=== PATIENT | female | born 1975 | race Caucasian/White ===

== ENCOUNTER 2016-11-17 20:35 | Observation (INO) ==
[2016-11-17] MEDS ORDERED: SODIUM CHLORIDE 0.9% 500 ML IV STA (21:33)
[2016-11-17] MEDS ORDERED: NITROGLYCERIN 2% OINT 1 INCH/GM PACK TOP STA (21:33)
[2016-11-17] MEDS ORDERED: ASPIRIN 325 MG TABLET PO STA (21:33)
[2016-11-17] MEDS ORDERED: METOPROLOL TARTRATE 25 MG TABLET PO STA (21:33)
[2016-11-17] MEDS ORDERED: MORPHINE 2 MG/1 ML SYRINGE IV STA (21:33)
[2016-11-17] MEDS ORDERED: ONDANSETRON 4 MG/2 ML VIAL IV STA (21:33)
[2016-11-17] MEDS ORDERED: ALUM/MAG/SIMETH/LIDO VISC 1:1 30 ML BOTTLE PO STA (21:33)
[2016-11-17] MEDS ORDERED: METOPROLOL TARTRATE 25 MG TABLET ONE (21:42)
[2016-11-17] MEDS ORDERED: NITROGLYCERIN 2% OINT 1 INCH/GM PACK TOP ONE (21:42)
[2016-11-17] MEDS ORDERED: ONDANSETRON 4 MG/2 ML VIAL ONE (21:42)
[2016-11-17] MEDS ORDERED: ALUM/MAG/SIMETH/LIDO VISC 1:1 30 ML BOTTLE PO ONE (21:43)
[2016-11-17] MEDS ORDERED: ASPIRIN 325 MG TABLET ONE (21:43)
[2016-11-17] MEDS ORDERED: MORPHINE 2 MG/1 ML SYRINGE ONE (21:43)
[2016-11-17 22:18] LABS: Apearance,Urine CLEAR (Clear); Bilirubin,Urine Negative (Negative); Blood, Urine Negative (Negative); Glucose,Urine (UA) Negative (Negative); Ketones,Urine Negative (Negative); Nitrite,Urine Negative (Negative); Protein,Urine Negative; RBC,Urine <1 /HPF (0-4); Squamous Epithelial Cell,Urine Occasional /HPF (0-10); Urine Color Yellow (Yellow); Urine Specific Gravity 1.009 (1.001-1.035); Urine Urobilinogen < 2.0 EU/DL (0.2-1.0); WBC,Urine 1 /HPF (0-6)
--- NOTE | 2016-11-17 22:18 | Emergency Department Note ---
Theron May Emily, am scribing for, and in the presence of, Kenrick Figueroa MD 21: 52. Carolina May Charles R, MD, personally performed the services described in this documentation, ascribed by Ingris Crump in my presence, and it is both accurate and complete . Arrival - Arrival Chief Complaint: Chest Pain Stated Complaint: chest pains ED Nursing Triage Note: pt presented to triage via w/c with c/o CP that radiates down L arm. Describes pain as sharp and stabbing. Rates 02/08 Mode of Arrival: Ambulatory Limitations: No Limitations Source: Patient, Significant other () Time Seen by Provider: 11/17/16 21:16 - History of Present Illness HPI Narrative: Pt is a 40 y/o female who came to ED with c/o intermittent chest pain that radiating into jawline and left arm with SOB that onset 2 months ago and tonight has worsened. Pt notes ignoring the pain, until it became stabbing tonight and has eased up some in ED. Pt has associated sxs dizziness, weakness , nausea, increased frequency, rapid heart rate, swelling in all extremities, and calf tenderness. Pt denies smoking tobacco. FMHx of grandmother with massive [place]. PMHx of blockage in colon and hysterectomy in October 2015. Onset (ago): month(s) Consistency: intermittent Severity: mild, moderate Severity scale (1-10): 4 Quality: stabbing, aching Allergies/Adverse Reactions: Allergies Allergy/AdvReac Type Severity Reaction Status Date / Time nitrofurantoin Allergy Severe Vomiting Verified 10/03/15 12:00 [From Macrobid] promethazine [From Phenergan] AdvReac Verified 12/29/15 10:28 Home Medications: Home Medications Medication Instructions Recorded Confirmed Type Linaclotide [Linzess] 145 mcg PO DIRECTED 11/15/14 12/25/15 History Multivitamin [One Daily] 1 tablet PO DAILY 11/15/14 12/25/15 History Pantoprazole Tab [Protonix Tab] 40 mg PO DAILY 11/15/14 12/25/15 History Estradiol 0.1MG Patch (1X Wk) 1 patch TRANSDERM Q7DAY #4 patch NS 10/07/1512/28 Rx [Climara 0.1 mg/24 hr Patch] Review of System - Review of System 12 point system: reviewed and no additional remarkable complaints except as stated - Review of System Constitutional: Present: diaphoresis. Absent: fever Respiratory: Present: respiratory distress (sob) Cardiovascular: Present: chest pain (radiating into jaw and left arm), palpitations (rapid), edema (all extremities). Absent: syncope Gastrointestinal: Present: nausea, diarrhea. Absent: abdominal pain, vomiting Genitourinary female: Present: frequency. Absent: dysuria, hematuria Musculoskeletal: Present: arm pain, neck pain (jaw line). Absent: back pain, leg pain Skin: Absent: rash Neurological: Absent: headache Medical,Surgical,& Family Hx - Medical History Neurology: History of: Migraine No history of: Seizures HEENT: History of: Oral Cancer (TMJ) Genitourinary: History of: Kidney Stones Gastrointestinal: History of: Bowel Obstruction, GERD Musculoskeletal: History of: Herniated Disk, Musculoskeletal Problems Other: History of: MRSA (2015 after back surgery) - Surgical History Cardiac Surgeries: Patient Denies: Cardiac Catheterization HEENT Surgeries: Patient denies: Tonsilectomy & Adenoidectomy Abdominal Surgeries: Surgical HX of: Abdominal Surgery (colon surgery with dr odom), Colonoscopy, EGD Patient denies: Appendectomy, Cholecystectomy Reproductive Surgeries: Surgical HX of;: Breast Surgery (lumpectomy left breast) , Cystoscopy (with stent 2007. stent removed 2007), Hysterectomy Orthopedic Surgeries: Surgical HX of;: Spinal Surgery (l4 to s[address] luis fernando shabazz, [place] apr 2014) - Family History Family History: Reports;: Family Heart Disease (grandmother) - Social History Smoking Status: Never smoker Frequency of Alcohol Use: None Type of Drug Use: None Marital Status: Lives With:: Spouse Functional capacity: independent ambulation Exam Vital Signs: Vital Signs Temperature 96.2 F L 11/17/16 20:55 Pulse Rate 68 11/17/16 23:15 Respiratory Rate 20 11/17/16 23:15 Blood Pressure 112/72 11/17/16 23:15 O2 Sat by Pulse Oximetry 97 11/17/16 23:15 - General General appearance: alert, in no apparent distress - Head Head exam: Present: atraumatic, normocephalic - Eye Eye exam: Present: PERRL, EOMI - ENT ENT exam: Present: mucous membranes moist. Absent: mucous membranes dry - Neck Neck exam: Present: full ROM. Absent: tenderness - Chest Chest inspection: Present: symmetric chest wall rise. Absent: tenderness - Respiratory Respiratory exam: Present: normal lung sounds bilaterally. Absent: respiratory distress - Cardiovascular Cardiovascular exam: Present: regular rate, normal rhythm, normal heart sounds. Absent: tachycardia - Abdominal Exam Abdominal exam: Present: soft, normal bowel sounds. Absent: tenderness - Extremities Exam Extremities exam: Present: full ROM. Absent: tenderness, pedal edema - Back Exam Back exam: Present: full ROM. Absent: tenderness - Neurological Exam Neurological exam: Present: alert, oriented X3, CN II-XII intact. Absent: motor sensory deficit - Psychiatric Psychiatric exam: Present: normal affect, normal mood - Skin Skin exam: Present: warm, dry Course - Consultations Consultation #1: Hospitalist will admit patient Time: 00:00 Results - Labs CBC & BMP: 11/17/16 21:07 11/17/16 21:07 Lab Results: I have reviewed the patients labs Labs: Laboratory Tests 11/17/16 21:07 Urine Appearance Clear Urine pH 7.0 Ur Specific [place] 1.009 Urine Blood Negative Urine Nitrate Negative Urine Urobilinogen < 2.0 H Urine Leukocytes Negative Urine RBC <1 Urine WBC 1 Ur Squamous Epith Cells Occasional Laboratory Tests 11/17/16 21:07 Urine Opiates Screen Negative Ur Barbiturates Screen Negative Ur Phencyclidine Scrn Negative U Amphetamine/Methamph Negative U Benzodiazepines Scrn Positive H U Cocaine Metab Screen Negative U Cannabinoids Screen Negative Disposition Clinical Impression: Chest pain, Atypical chest pain, Near syncope Case discussed with: patient, patient's family Disposition: Still a Patient Condition: Stable Time of Disposition: 00:12
[2016-11-17 22:27] LABS: Barbiturates Screen,Urine Negative (Negative); Benzodiazepines Screen,Urine Positive (Negative); Cannabinoid Screen,Urine Negative (Negative); Opiate Screen,Urine Negative (Negative); Phencyclidine Screen,Urine Negative (Negative)
[2016-11-17 23:23] LABS: Basophils % 0.3 % (0.0-0.8); Eosinophils # 0.1 10*3/uL (0.0-0.87); Eosinophils % 1.9 % (0.00-10.9); Hematocrit 41.2 VOL% (35.7-47.0); Immature Granulocytes % 0.9 %; Immature Granulocytes Absolute 0.06 #; Lymphocytes # 2.2 10*3/uL (1.4-4.0); Lymphocytes % 34.3 % (21.3-54.2); Mean Corpuscular Hemoglobin 34 PG (27-34); Mean Corpuscular Volume 99.3 FL (87-102); Mean Platelet Volume 11.8 FL (9.6-12.0); Monocytes # 0.5 10*3/uL (0.11-0.8); Monocytes % 8.1 % (1.7-12.7); Neutrophils # 3.5 10*3/uL (1.4-7.4); Neutrophils % 54.5 % (38.7-73.9); Platelet Count 205 T/CUMM (130-400); Red Blood Count 4.15 MC/CUMM (3.8-5.5); Red Cell Distribution Width 12.2 % (9.3-17.3); White Blood Count 6.4 T/CUMM (4-12)
[2016-11-17 23:30] LABS: D-Dimer <= 0.5 MG/L FEU; INR 0.9; PT Patient Result 9.6 SECS
[2016-11-17 23:44] LABS: Alanine Aminotransferase 26 U/L (13-56); Albumin 3.9 G/DL (3.4-5.0); Alkaline Phosphatase 64 U/L (45-117); Aspartate Amino Transferase 24 U/L (0-37); Bilirubin,Total < 0.39 MG/DL (0.2-1.0); Blood Urea Nitrogen 15 MG/DL (7-18); Calcium 9.2 MG/DL (8.5-10.1); Glucose 102 MG/DL (74-106); Osmolality,Calculated 277.5 MOS/KG (273-304); Potassium 3.8 MMOL/L (3.5-5.1); Sodium 139 MMOL/L (136-145)
[2016-11-18] MEDS ORDERED: KETOROLAC 30 MG/1 ML VIAL ONE (01:08)
[2016-11-18] MEDS ORDERED: KETOROLAC 30 MG/1 ML VIAL IV STA (01:09)
[2016-11-18] MEDS ORDERED: MORPHINE 2 MG/1 ML SYRINGE IV PRN (02:11)
--- NOTE | 2016-11-18 02:19 | Hospitalist History & Physical ---
Assessment and Plan (1) History of esophageal reflux Status: Acute Current Visit: Yes (2) History of neuropathy Status: Acute Current Visit: Yes (3) Atypical chest pain Status: Acute Assessment and plan: Our plan for this patient will be admitting her to our service. Her symptoms sound very atypical for cardiac pain. Patient was very concerned about this being her heart. I do feel would be appropriate to get cardiology to evaluate her we will draw serial cardiac enzymes and check a fasting lipid profile. Reevaluate patient in the morning and adjust plans appropriate. Current Visit: Yes History of Present Illness Chief complaint: Chest pain History of present illness: Ms. Funes is a 40 year old female with past medical history significant for reflux, chronic constipation and pain syndrome was in her normal state of health to the past 2 months. She said the pain has been coming and going but the pain really increased tonight and radiated to her jaw and down her arm to her elbow. She describes a stabbing. It made her short of breath and nauseated. There are no exertional components. She sees Dr. Stewart and Dr. Stewart is trying to get her an appointment with Dr. Chappell with cardiology. She got concerned tonight that it might be her heart and came to our hospital for further evaluation. I was consulted to admit her. Home Medications Medication Instructions Recorded Confirmed Type Linaclotide [Linzess] 145 mcg PO DIRECTED 11/15/14 12/25/15 History Multivitamin [One Daily] 1 tablet PO DAILY 11/15/14 12/25/15 History Pantoprazole Tab [Protonix Tab] 40 mg PO DAILY 11/15/14 12/25/15 History Estradiol 0.1MG Patch (1X Wk) 1 patch TRANSDERM Q7DAY #4 patch NS 10/07/1512/28 Rx [Climara 0.1 mg/24 hr Patch] Allergies Allergy/AdvReac Type Severity Reaction Status Date / Time nitrofurantoin Allergy Severe Vomiting Verified 10/03/15 12:00 [From Macrobid] promethazine [From Phenergan] AdvReac Verified 12/29/15 10:28 Medical,Surgical,& Family Hx - Medical History Neurology: History of: Migraine No history of: Seizures HEENT: History of: Oral Cancer (TMJ) Genitourinary: History of: Kidney Stones Gastrointestinal: History of: Bowel Obstruction, GERD Musculoskeletal: History of: Herniated Disk, Musculoskeletal Problems Other: History of: MRSA (2015 after back surgery) - Surgical History Cardiac Surgeries: Patient Denies: Cardiac Catheterization HEENT Surgeries: Patient denies: Tonsilectomy & Adenoidectomy Abdominal Surgeries: Surgical HX of: Abdominal Surgery (colon surgery with dr odom), Colonoscopy, EGD Patient denies: Appendectomy, Cholecystectomy Reproductive Surgeries: Surgical HX of;: Breast Surgery (lumpectomy left breast) , Cystoscopy (with stent 2007. stent removed 2007), Hysterectomy Orthopedic Surgeries: Surgical HX of;: Spinal Surgery (l4 [address] luis fernando shabazz, [place] apr 2014) - Family History Family History: Reports;: Family Heart Disease (grandmother) - Social History Smoking Status: Never smoker Frequency of Alcohol Use: None Type of Drug Use: None 12 point system: reviewed and no additional remarkable complaints except as stated Exam - Constitutional Vitals: Period Temp Pulse Resp BP Sys/Reeves Pulse Ox Last 24 Hr 96.2 F-96.2 F 68-86 18-20 100-125/52-81 96-100 General appearance: normal weight - Head Head exam: Present: normal inspection - Eye Eye exam: Present: EOMI Pupils: Present: LETY - ENT ENT exam: Present: normal exam - Neck Neck exam: Present: normal inspection - Respiratory Respiratory exam: Present: clear to auscultation bilaterally - Cardiovascular Cardiovascular exam: Present: regular rate and rhythm - GI/Abdominal GI/Abdominal exam: Present: normal bowel sounds - Extremities Exam Extremities exam: Present: normal inspection - Back Exam Back exam: Present: normal inspection - Neurological Exam Neurological exam: Present: alert, oriented X3 - Psychiatric Psychiatric exam: Present: normal affect, normal mood - Skin Skin exam: Present: normal color Results - Labs CBC & BMP: 11/17/16 21:07 11/17/16 21:07
--- NOTE | 2016-11-18 02:43 | Hospitalist History & Physical ---
Assessment and Plan (1) History of esophageal reflux Status: Acute Current Visit: Yes (2) History of neuropathy Status: Acute Current Visit: Yes (3) Atypical chest pain Status: Acute Assessment and plan: Our plan for this patient will be admitting her to our service. Her symptoms sound very atypical for cardiac pain. Patient was very concerned about this being her heart. I do feel would be appropriate to get cardiology to evaluate her we will draw serial cardiac enzymes and check a fasting lipid profile. Reevaluate patient in the morning and adjust plans appropriate. Current Visit: Yes History of Present Illness Chief complaint: Chest pain History of present illness: Ms. Funes is a 40 year old female Home Medications Medication Instructions Recorded Confirmed Type Linaclotide [Linzess] 145 mcg PO DIRECTED 11/15/14 12/25/15 History Multivitamin [One Daily] 1 tablet PO DAILY 11/15/14 12/25/15 History Pantoprazole Tab [Protonix Tab] 40 mg PO DAILY 11/15/14 12/25/15 History Estradiol 0.1MG Patch (1X Wk) 1 patch TRANSDERM Q7DAY #4 patch NS 10/07/1512/28 Rx [Climara 0.1 mg/24 hr Patch] Allergies Allergy/AdvReac Type Severity Reaction Status Date / Time nitrofurantoin Allergy Severe Vomiting Verified 10/03/15 12:00 [From Macrobid] promethazine [From Phenergan] AdvReac Verified 12/29/15 10:28 Medical,Surgical,& Family Hx - Medical History Neurology: History of: Migraine No history of: Seizures HEENT: History of: Oral Cancer (TMJ) Genitourinary: History of: Kidney Stones Gastrointestinal: History of: Bowel Obstruction, GERD Musculoskeletal: History of: Herniated Disk, Musculoskeletal Problems Other: History of: MRSA (2015 after back surgery) - Surgical History Cardiac Surgeries: Patient Denies: Cardiac Catheterization HEENT Surgeries: Patient denies: Tonsilectomy & Adenoidectomy Abdominal Surgeries: Surgical HX of: Abdominal Surgery (colon surgery with dr odom), Colonoscopy, EGD Patient denies: Appendectomy, Cholecystectomy Reproductive Surgeries: Surgical HX of;: Breast Surgery (lumpectomy left breast) , Cystoscopy (with stent 2007. stent removed 2007), Hysterectomy Orthopedic Surgeries: Surgical HX of;: Spinal Surgery (l4 [address] luis fernando shabazz, [place] apr 2014) - Family History Family History: Reports;: Family Heart Disease (grandmother) - Social History Smoking Status: Never smoker Frequency of Alcohol Use: None Type of Drug Use: None Exam - Constitutional Vitals: Period Temp Pulse Resp BP Sys/Reeves Pulse Ox Last 24 Hr 96.2 F-96.2 F 68-86 18-20 96-125/52-81 96-100 Results - Labs CBC & BMP: 11/17/16 21:07 11/17/16 21:07
[2016-11-18 02:47] LABS: Risk Ratio 3.5; VLDL CHOLESTEROL 46.8 MG/DL
--- NOTE | 2016-11-18 03:16 | EKG Report ---
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
[2016-11-18] MEDS: ONDANSETRON 4 MG/2 ML VIAL IV PRN ×2 (04:11→12:13)
[2016-11-18] MEDS: NITROGLYCERIN 2% OINT 1 INCH/GM PACK TOP SCH ×2 (05:46→13:08)
--- NOTE | 2016-11-18 06:23 | EKG Report ---
Stationary ECG Study [facility] ER Test Date: 11/17/2016 8:41:40 PM Pat Name: MIGUEL BELTRAN Department: Room: 264 Gender: F It Lead: : 1975 Requested by: Kenrick Yu Order Number: [id number] Reading MD: NOREEN COBOS Intervals [place] Rate: 73 P: 78 IN: 168 QRS: 73 QRSD: 73 T: 73 QT: 391 QTc: 416 Interpretive Statements SINUS RHYTHM NONSPECIFIC T WAVE ABNORMALITY Electronically Signed On 11-19-16 15:54:29 CDT by NOREEN COBOS [email or web address]
--- NOTE | 2016-11-18 06:24 | EKG Report ---
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
--- NOTE | 2016-11-18 08:12 | XRay Report ---
Exam: XR chest 2V Indication: Midline chest pain Comparison study: None Findings: The heart, mediastinum, and bony structures are within normal limits. There is no focal consolidation, pneumothorax or pleural effusion identified. Impression: No acute cardiopulmonary process. PROCEDURE INTERPRETED AT [facility] DEPARTMENT OF RADIOLOGY Final Report Signed by: Israel Gonzalez
[2016-11-18] MEDS ORDERED: ENOXAPARIN 40 MG/0.4 ML SYRINGE SUBCUT SCH (09:00)
[2016-11-18] MEDS ORDERED: PANTOPRAZOLE 40 MG TABLET PO SCH (09:00)
[2016-11-18] MEDS ORDERED: ASPIRIN EC 325 MG TABLET PO SCH (09:00)
--- NOTE | 2016-11-18 10:26 | Cardiology Consult Note ---
I, Melisa Pearce RN, am scribing for, and in the presence of, Curly Giron MD 10:25. Assessment and Plan - Time spent with patient Time spent with patient: Greater than 30 minutes (Due to assessment, plan, documentation, medication review) (1) Chest pain Status: Acute Assessment and plan: Patient is having chest pain symptoms, and some of her symptoms are a bit concerning for angina. I am going to get a treadmill stress test to rule out high risk results. I am suspicious that her symptoms are noncardiac in nature. Current Visit: Yes (2) History of esophageal reflux Status: Acute Assessment and plan: It is possible that her symptoms are coming from reflux, or even from musculoskeletal symptoms. Current Visit: Yes (3) Musculoskeletal pain Status: Acute Assessment and plan: The patient has been having some problems with diffuse musculoskeletal pain. Workup is underway by Dr. Stewart. 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 Kaur Ms. Funes is a 40 year old female who has never been seen by quality control technician. She denies ever having had a heart catheterization or stress test. She has a history of migraines and GERD. She has been seeing Dr. Stewart for complaints of generalized pain. She says Dr. Stewart has been working her up for possibly MS or fibromyalgia. She was placed on Cymbalta and quit taking it because of the side effects. She was prescribed Lyrica, but states she never picked up the prescription because she was concerned about possible side effects. Surgical history includes colon surgery, hysterectomy, breast surgery, spinal surgery and jaw surgery for TMJ. Family history is positive for mother with TIA and father with diabetes. She reports she is a lifetime non-smoker. She reports she has been having chest pain, shortness of breath, lower extremity edema, and dizziness for the last several months. Yesterday the pain became more severe, rating it a 10 on a scale of 1-10. She describes this as a sharp pain on the left side of her chest that goes down her left arm and up into her left jaw. Yesterday this was associated with diaphoresis, nausea and vomiting. The pain comes and goes, she said the worst episode she had yesterday lasted for greater than 5 minutes. She notes no triggers stating sometimes it comes on at rest sometimes comes on with exertion, but states it is usually relieved with rest. The pain is reproducible to palpation. Because the pain was so much worse yesterday than it normally is, she presented to the emergency department for further evaluation. EKG on admission was stable without evidence of any acute event. Chest x-ray revealed no acute cardiopulmonary process. Troponin has been negative 5. Being currently is less than 2. D-dimer was negative. Her cholesterol numbers are elevated, all other labs are unremarkable. She says her pain improved after receiving GI cocktail, Nitro-Bid, Toradol, and morphine in the emergency department last night. She denies any chest pain or shortness of breath at this time. Current Medications Aspirin () 325 mg PO DAILY [facility] Last Admin: 11/18/16 08:46 Dose: 325 mg Enoxaparin Sodium (Lovenox) 40 mg SUBCUT Q24H [facility] Last Admin: 11/18/16 08:46 Dose: 40 mg Morphine Sulfate () 2 mg IV Q5M PRN PRN Reason: Chest Pain Nitroglycerin (Nitro Bid Oint) 0.5 inch TOP Q6HR [facility] Last Admin: 11/18/16 05:46 Dose: Not Given Ondansetron HCl (Zofran Inj) 4 mg IV Q4H PRN PRN Reason: Nausea/Vomiting Last Admin: 11/18/16 04:11 Dose: 4 mg Pantoprazole Sodium (Protonix Tab) 40 mg PO DAILY [facility] Last Admin: 11/18/16 08:46 Dose: 40 mg CC: Carly Figueroa MD - Home Medications and Allergies Home Medications: Home Medications Medication Instructions Recorded Confirmed Type Linaclotide [Linzess] 145 mcg PO DAILY 11/15/14 11/18/16 History Multivitamin [One Daily] 1 tablet PO DAILY 11/15/14 11/18/16 History Pantoprazole Tab [Protonix Tab] 40 mg PO DAILY 11/15/14 11/18/16 History Estradiol 0.1MG Patch (1X Wk) 1 patch TRANSDERM Q7DAY #4 patch NS 10/07/1511/18 Rx [Climara 0.1 mg/24 hr Patch] Aspirin [Ecotrin] 81 mg PO DAILY 11/18/16 11/18/16 History Carisoprodol [Carisoprodol] 350 mg PO DIRECTED 11/18/16 11/18/16 History Clorazepate Dipotassium 7.5 mg PO DIRECTED 11/18/16 11/18/16 History Eletriptan HBr [Relpax] 40 mg PO DIRECTED 11/18/16 11/18/16 History Allergies/Adverse Reactions: Allergies Allergy/AdvReac Type Severity Reaction Status Date / Time nitrofurantoin Allergy Severe Vomiting Verified 10/03/15 12:00 [From Macrobid] promethazine [From Phenergan] AdvReac Verified 12/29/15 10:28 - Constitutional Constitutional: Present: as per HPI - EENT Eyes: Absent: blurry vision, requires corrective lense Ears: Absent: decreased hearing, ear pain, tinnitus Nose, mouth and throat: Present: headache(s), neck pain, sore throat. Absent: epistaxis, hoarseness - Cardiovascular Cardiovascular: Present: chest pain at rest, chest pain with activity, diaphoresis, dyspnea, dyspnea on exertion, edema, radiating jaw, neck or arm pain, lightheadedness, palpitations. Absent: orthopnea - Respiratory Respiratory: Present: dyspnea, dyspnea on exertion. Absent: cough, hemoptysis, wheezing - Gastrointestinal Gastrointestinal: Present: constipation, diarrhea, nausea, vomiting. Absent: abdominal pain, hematemesis, hematochezia, melena - Genitourinary Genitourinary: Absent: dysuria, hematuria - Musculoskeletal Musculoskeletal: Present: back pain, muscle weakness - Neurological Neurological: Present: abnormal gait, dizziness, frequent falls, headache(s). Absent: abnormal speech, confusion, syncope - Psychiatric Psychiatric: Absent: confusion - Endocrine Endocrine: Present: fatigue - Hematologic/Lymphatic Hematologic/Lymphatic: Present: easy bruising. Absent: easy bleeding Medical,Surgical,& Family Hx - Medical History Neurology: History of: Migraine Genitourinary: History of: Kidney Stones Gastrointestinal: History of: Bowel Obstruction, GERD Musculoskeletal: History of: Herniated Disk, Musculoskeletal Problems Other: History of: MRSA (2015 after back surgery) - Surgical History Abdominal Surgeries: Surgical HX of: Abdominal Surgery (colon surgery with dr odom), Colonoscopy, EGD Reproductive Surgeries: Surgical HX of;: Breast Surgery (lumpectomy left breast , breast augmentation), Cystoscopy (with stent 2007. stent removed 2007), Hysterectomy Orthopedic Surgeries: Surgical HX of;: Spinal Surgery (l4 to s1 surgery dr luis fernando shabazz, [place] apr 2014) Additional Surgical History: Oral surgery for TMJ - Family History Family History: Reports;: Family Cancer (father-colon cancer), Family Diabetes ( father), Family Heart Disease (grandmother), Family Stroke (mother-TIA) - Social History Smoking Status: Never smoker Have you smoked in the last 12 months: No Frequency of Alcohol Use: None Type of Drug Use: None Marital Status: Lives With:: Spouse Functional capacity: independent ambulation Physical Examination Vital Signs Temp Pulse Resp BP Pulse Ox 96.2 F L 69 20 116/73 100 11/17/16 20:38 11/17/16 20:38 11/17/16 20:38 11/17/16 20:38 11/17/16 20:38 General: Present: Appears Well, No Apparent Distress HEENT: Present: PERRL, Mucus Membranes Moist Neck: Present: Supple Neck, Midline Trachea, No Bruit Cardiac: Present: Reg Rate and Rhythm, No Murmur Lungs: Present: Normal Breath Sounds, No Wheeze, Rales, Rhonchi Neuro: Absent: Resting Tremor, Essential Tremor Abdomen: Present: Soft, Active Bowel Sounds, Non-Tender. Absent: Distended Skin: Absent: Suspicious Lesions, Wound Musculoskeletal: Present: Decreased Range of Motion, Pain in Joint Extremities: Present: No Edema, Normal Upper Extr. Pulses, Normal Lower Extr. Pulses Result/EKG - Labs CBC & BMP: 11/17/16 21:07 11/17/16 21:07 Lab Results: I have reviewed the past 24 hour labs Labs: Laboratory Results - last 24 hr 11/17/16 11/17/16 11/17/16 21:07 21:07 21:07 WBC RBC Hgb Hct MCV MCH MCHC RDW Plt Count MPV Neut % (Auto) Lymph % (Auto) [place] % (Auto) Eos % (Auto) Baso % (Auto) Neut # (Auto) Lymph # (Auto) [place] # (Auto) Eos # (Auto) Baso # (Auto) Immature Gran % Nucleated RBC % Immature Gran # Nucleated RBCs # INR 0.9 PT Patient/Control Mix 9.6 D-Dimer, Quantitative <= 0.5 Sodium 139 Potassium 3.8 Chloride 104 Carbon Dioxide 26 Anion Gap 12.8 BUN 15 Creatinine 0.80 GFR Calculation 98 BUN/Creatinine Ratio 18.00 Glucose 102 Calculated Osmolality 277.5 Calcium 9.2 Magnesium 2.0 Total Bilirubin < 0.39 AST 24 ALT 26 Alkaline Phosphatase 64 Troponin I B-Natriuretic Peptide Total Protein 7.0 Albumin 3.9 Globulin 3.1 Albumin/Globulin Ratio 1.2 Triglycerides Cholesterol LDL Cholesterol VLDL Cholesterol HDL Cholesterol Heart Disease Risk Ratio Lipase 218.0 Urine Color Yellow Urine Appearance Clear Urine pH 7.0 Ur Specific [place] 1.009 Urine Protein Negative Urine Glucose (UA) Negative Urine Ketones Negative Urine Blood Negative Urine Nitrate Negative Urine Bilirubin Negative Urine Urobilinogen < 2.0 H Urine Leukocytes Negative Urine RBC <1 Urine WBC 1 Ur Squamous Epith Cells Occasional Ur Culture Indicated? Not indicated Urine Opiates Screen Ur Barbiturates Screen Ur Phencyclidine Scrn U Amphetamine/Methamph U Benzodiazepines Scrn U Cocaine Metab Screen U Cannabinoids Screen 11/17/16 11/17/16 11/17/16 21:07 21:07 21:07 WBC 6.4 RBC 4.15 Hgb 14.0 Hct 41.2 MCV 99.3 MCH 34 MCHC 34.0 RDW 12.2 Plt Count 205 MPV 11.8 Neut % (Auto) 54.5 Lymph % (Auto) 34.3 [place] % (Auto) 8.1 Eos % (Auto) 1.9 Baso % (Auto) 0.3 Neut # (Auto) 3.5 Lymph # (Auto) 2.2 [place] # (Auto) 0.5 Eos # (Auto) 0.1 Baso # (Auto) 0.0 Immature Gran % 0.9 Nucleated RBC % 0.0 Immature Gran # 0.06 Nucleated RBCs # 0.00 INR PT Patient/Control Mix D-Dimer, Quantitative Sodium Potassium Chloride Carbon Dioxide Anion Gap BUN Creatinine GFR Calculation BUN/Creatinine Ratio Glucose Calculated Osmolality Calcium Magnesium Total Bilirubin AST ALT Alkaline Phosphatase Troponin I B-Natriuretic Peptide < 2 L Total Protein Albumin Globulin Albumin/Globulin Ratio Triglycerides Cholesterol LDL Cholesterol VLDL Cholesterol HDL Cholesterol Heart Disease Risk Ratio Lipase Urine Color Urine Appearance Urine pH Ur Specific [place] Urine Protein Urine Glucose (UA) Urine Ketones Urine Blood Urine Nitrate Urine Bilirubin Urine Urobilinogen Urine Leukocytes Urine RBC Urine WBC Ur Squamous Epith Cells Ur Culture Indicated? Urine Opiates Screen Negative Ur Barbiturates Screen Negative Ur Phencyclidine Scrn Negative U Amphetamine/Methamph Negative U Benzodiazepines Scrn Positive H U Cocaine Metab Screen Negative U Cannabinoids Screen Negative 11/17/16 11/18/16 11/18/16 21:07 00:00 00:02 WBC RBC Hgb Hct MCV MCH MCHC RDW Plt Count MPV Neut % (Auto) Lymph % (Auto) [place] % (Auto) Eos % (Auto) Baso % (Auto) Neut # (Auto) Lymph # (Auto) [place] # (Auto) Eos # (Auto) Baso # (Auto) Immature Gran % Nucleated RBC % Immature Gran # Nucleated RBCs # INR PT Patient/Control Mix D-Dimer, Quantitative Sodium Potassium Chloride Carbon Dioxide Anion Gap BUN Creatinine GFR Calculation BUN/Creatinine Ratio Glucose Calculated Osmolality Calcium Magnesium Total Bilirubin AST ALT Alkaline Phosphatase Troponin I < 0.015 < 0.015 B-Natriuretic Peptide Total Protein Albumin Globulin Albumin/Globulin Ratio Triglycerides 234 H Cholesterol 245 H LDL Cholesterol 153.0 VLDL Cholesterol 46.8 HDL Cholesterol 70 H Heart Disease Risk Ratio 3.50 Lipase Urine Color Urine Appearance Urine pH Ur Specific [place] Urine Protein Urine Glucose (UA) Urine Ketones Urine Blood Urine Nitrate Urine Bilirubin Urine Urobilinogen Urine Leukocytes Urine RBC Urine WBC Ur Squamous Epith Cells Ur Culture Indicated? Urine Opiates Screen Ur Barbiturates Screen Ur Phencyclidine Scrn U Amphetamine/Methamph U Benzodiazepines Scrn U Cocaine Metab Screen U Cannabinoids Screen 11/18/16 11/18/16 03:22 06:00 WBC RBC Hgb Hct MCV MCH MCHC RDW Plt Count MPV Neut % (Auto) Lymph % (Auto) [place] % (Auto) Eos % (Auto) Baso % (Auto) Neut # (Auto) Lymph # (Auto) [place] # (Auto) Eos # (Auto) Baso # (Auto) Immature Gran % Nucleated RBC % Immature Gran # Nucleated RBCs # INR PT Patient/Control Mix D-Dimer, Quantitative Sodium Potassium Chloride Carbon Dioxide Anion Gap BUN Creatinine GFR Calculation BUN/Creatinine Ratio Glucose Calculated Osmolality Calcium Magnesium Total Bilirubin AST ALT Alkaline Phosphatase Troponin I < 0.015 < 0.015 B-Natriuretic Peptide Total Protein Albumin Globulin Albumin/Globulin Ratio Triglycerides Cholesterol LDL Cholesterol VLDL Cholesterol HDL Cholesterol Heart Disease Risk Ratio Lipase Urine Color Urine Appearance Urine pH Ur Specific [place] Urine Protein Urine Glucose (UA) Urine Ketones Urine Blood Urine Nitrate Urine Bilirubin Urine Urobilinogen Urine Leukocytes Urine RBC Urine WBC Ur Squamous Epith Cells Ur Culture Indicated? Urine Opiates Screen Ur Barbiturates Screen Ur Phencyclidine Scrn U Amphetamine/Methamph U Benzodiazepines Scrn U Cocaine Metab Screen U Cannabinoids Screen - Diagnostic Findings Procedure: Chest x-ray: report reviewed by me - EKG EKG results: interpreted by me EKG shows: sinus rhythm Specialty Discharge - Follow Up or Referrals IBree Michael, MD, personally performed the services described in this documentation, ascribed by Melisa Pearce RN in my presence, and it is both accurate and complete 025 .
[2016-11-18] MEDS ORDERED: REGADENOSON 0.4 MG/5 ML SYRINGE IV ONE (10:33)
--- NOTE | 2016-11-18 12:13 | Event Note ---
Patient attempted GXT but due to severe weakness, fatigue could not achieve predicted target heart rate. She did have around less than [address] depression inferiorly. Because she cannot attain target heart rate safely, treadmill portion was discontinued. Lexiscan protocol then ensued. She then underwent initial nuclear scan, returned to treadmill where she attempted GXT portion again. Again, fatigue and severe weakness noted at suboptimal heart rates. Desirae scan, Cardiolite injected. Patient did have less than [address] depression in inferior leads, T-wave mildly inverted. No complaints of chest pain. No arrhythmia noted. Blood pressure responded appropriately. Now, patient transitions to nuclear medicine for completion of final scan. Dr. Giron to read, interpreted and advise. Of note, patient reports most of her adult life, she has had syncopal episodes without warning. Usually occurring around twice a year. Many years ago, she sought medical advice at [facility] but got no definitive answers. No prior history of seizure activity. We discussed the possibility of Reveal device as a possibility in her future should no other etiology of syncope be discovered. Will further defer to Dr. Giron for additional workup is needed.
--- NOTE | 2016-11-18 13:25 | ECHO Report ---
Chapis Funes Exam Date: 11/18/2016 10:43 Referring Physician: Technologist: Josephine Roth RDCS Age: 40 Ht (in): 67 Wt (lb): 165 Gender: F Exam Location: [facility] Echo Indications: Chest pain, unspecified, Dizziness and giddiness, Dyspnea, unspecified, Edema, unspecified, GERD BP: 115 / 76 HR: 77 Rhythm: Sinus Technical Quality: IMPRESSIONS Normal chamber sizes Normal LV systolic function with ejection fraction estimated be 55% without segmental wall motion reality 1+ tricuspid regurgitation with RVSP 22 mmHg plus RAP MEASUREMENTS (Male / Female) Normal Values 2D ECHO LV Diastolic Diameter PLAX 4.1 cm 4.2 - 5.9 / 3.9 - 5.3 cm LV Systolic Diameter PLAX 2.5 cm LV Fractional Shortening PLAX 38.4 % IVS Diastolic Thickness 0.7 cm 0.6 - 1.0 / 0.6 - 0.9 cm LVPW Diastolic Thickness 0.7 cm 0.6 - 1.0 / 0.6 - 0.9 cm RV Internal Dim ED PLAX 2.8 cm Aortic Root Diameter 2.7 cm LA Systolic Diameter LX 3.3 cm 3.0 - 4.0 / 2.7 - 3.8 cm DOPPLER TR Peak Velocity 235.0 cm/s TR Peak Gradient 22.1 mmHg FINDINGS Left Ventricle Normal left ventricular cavity size. Normal left ventricular wall thickness. Left ventricular ejection fraction is estimated at 55 %. Right Ventricle The right ventricle is normal in size and function. Right Atrium The right atrium is normal in size. Left Atrium The left atrium is normal in size. Mitral Valve Morphologically normal mitral valve without significant stenosis or prolapse. There is no mitral regurgitation. Aortic Valve Morphologically normal aortic valve without significant sclerosis or stenosis. There is no aortic regurgitation. Tricuspid Valve Morphologically normal tricuspid valve. Trace tricuspid valve regurgitation. Tricuspid regurgitation velocities suggest a PAP of 32 mmHg. Pulmonic Valve Morphologically normal pulmonic valve. Trace pulmonary valve regurgitation. Pericardium Normal pericardium without effusion. Aorta Normal ascending aorta dimension. Damion Martinez (Electronically Signed) Final Date: 18 November 2016 13:24
[2016-11-18] MEDS ORDERED: SODIUM CHLORIDE 0.9% 1,000 ML IV ONE (13:53)
--- NOTE | 2016-11-18 13:53 | Hospitalist Progress Note ---
Assessment and Plan (1) Chest pain Status: Acute Assessment and plan: Awaiting results of stress test Current Visit: Yes (2) Near syncope Status: Acute Assessment and plan: Blood pressure is on the lower and we will give a liter of normal saline Current Visit: Yes (3) History of esophageal reflux Status: Acute Assessment and plan: Continue Protonix Current Visit: Yes Hospitalist: Subjective Interval history: I am concerned about the symptoms she describes with her chest pains especially the radiation to her neck and down her left arm. Dr. Giron is seen her and agrees that she needs a stress test. Exam - Constitutional Vitals: Period Temp Pulse Resp BP Sys/Reeves Pulse Ox Last 24 Hr 96.2 F-97.9 F 61-86 18-20 90-130/52-81 95-100 Exam: Heart Rate-[RRR] Lungs-[CTAB] GI-[+bs soft, NT] Ext-[no edema] Neuro [Motor 5/5], [alert and oriented times 3] psych [normal mood and affect] General [no acute distress] Results - Labs CBC & BMP: 11/17/16 21:07 11/17/16 21:07 Lab Results: I have reviewed the past 24 hour labs - EKG EKG shows: sinus rhythm (With first-degree block) - Diagnostic Findings Procedure: Ultrasound: report reviewed by me (Echocardiogram showed an EF of 55 % with PA P of 30 to) Specialty Discharge - Follow Up or Referrals
--- NOTE | 2016-11-18 15:19 | Discharge Summary ---
Hospital Course - Hospital Course Hospital Course: 40-year-old female presented to the emergency room with complaints of chest pain and near syncope. Her blood pressure is running a little bit low and I bolster a liter of normal saline. She does have a history of reflux and already takes Protonix. Serial troponins were negative. Cardiology was consulted and did a stress test which was read as negative. Her echocardiogram was completely normal except for some tricuspid regurg. Her total cholesterol was mildly elevated and we discussed walking 20 minutes a day. Follow-up with primary care doctor in 1-2 weeks. - Time spent with patient Time with patient DS: Less than 30 minutes (25 min) Diagnosis - Discharge Diagnosis (1) Chest pain Status: Acute (2) Near syncope Status: Acute (3) History of esophageal reflux Status: Acute Specialty Discharge - Follow Up or Referrals Discharge Plan - Discharge Data Disposition: Disch To Home/Self Care Condition at Discharge: Stable Discharge Diet: heart healthy, low salt diet Activity: resume usual activities as tolerated Hygiene: no restrictions Weight Bearing at Discharge: full weight bearing - Discharge Medications New Cyclobenzaprine [Flexeril] 5 mg PO TID PRN #30 tablet PRN Reason: Muscle Spasm Continue Linaclotide [Linzess] 145 mcg PO DAILY Pantoprazole Tab [Protonix Tab] 40 mg PO DAILY Multivitamin [One Daily] 1 tablet PO DAILY Estradiol 0.1MG Patch (1X Wk) [Climara 0.1 mg/24 hr Patch] 1 patch TRANSDERM Q7DAY #4 patch NS Eletriptan HBr [Relpax] 40 mg PO DIRECTED Clorazepate Dipotassium 7.5 mg PO DIRECTED Discontinued Carisoprodol [Carisoprodol] 350 mg PO DIRECTED Aspirin [Ecotrin] 81 mg PO DAILY - Follow Up or Referral Follow Up: pmd, [Other] - 2 Weeks - Forms/Instructions Forms: Work/School Release Exam - Constitutional Vitals: Period Temp Pulse Resp BP Sys/Reeves Pulse Ox Last 24 Hr 96.2 F-97.9 F 61-86 18-20 90-130/52-81 95-100 General appearance: normal weight, no acute distress - Cardiovascular Cardiovascular exam: Present: regular rate and rhythm. Absent: tachycardia - GI/Abdominal GI/Abdominal exam: Present: normal bowel sounds, soft. Absent: tenderness - Extremities Exam Extremities exam: Present: normal inspection, normal capillary refill Discharge Results Procedures and tests throughout hospitalization: Pending Orders 11/18/16 11:30 NM ama perf SPECT rest or str Routine Labs on day of discharge: Labs from last 24 hours 11/18/16 11/18/16 11/18/16 08:04 06:00 03:22 WBC RBC Hgb Hct MCV MCH MCHC RDW Plt Count MPV Neut % (Auto) Lymph % (Auto) [place] % (Auto) Eos % (Auto) Baso % (Auto) Neut # (Auto) Lymph # (Auto) [place] # (Auto) Eos # (Auto) Baso # (Auto) Immature Gran % Nucleated RBC % Immature Gran # Nucleated RBCs # INR PT Patient/Control Mix D-Dimer, Quantitative Sodium Potassium Chloride Carbon Dioxide Anion Gap BUN Creatinine GFR Calculation BUN/Creatinine Ratio Glucose Calculated Osmolality Calcium Magnesium Total Bilirubin AST ALT Alkaline Phosphatase Troponin I < 0.015 < 0.015 < 0.015 B-Natriuretic Peptide Total Protein Albumin Globulin Albumin/Globulin Ratio Triglycerides Cholesterol LDL Cholesterol VLDL Cholesterol HDL Cholesterol Heart Disease Risk Ratio Lipase Urine Color Urine Appearance Urine pH Ur Specific [place] Urine Protein Urine Glucose (UA) Urine Ketones Urine Blood Urine Nitrate Urine Bilirubin Urine Urobilinogen Urine Leukocytes Urine RBC Urine WBC Ur Squamous Epith Cells Ur Culture Indicated? Urine Opiates Screen Ur Barbiturates Screen Ur Phencyclidine Scrn U Amphetamine/Methamph U Benzodiazepines Scrn U Cocaine Metab Screen U Cannabinoids Screen 11/18/16 11/18/16 11/17/16 00:02 00:00 21:07 WBC RBC Hgb Hct MCV MCH MCHC RDW Plt Count MPV Neut % (Auto) Lymph % (Auto) [place] % (Auto) Eos % (Auto) Baso % (Auto) Neut # (Auto) Lymph # (Auto) [place] # (Auto) Eos # (Auto) Baso # (Auto) Immature Gran % Nucleated RBC % Immature Gran # Nucleated RBCs # INR PT Patient/Control Mix D-Dimer, Quantitative Sodium Potassium Chloride Carbon Dioxide Anion Gap BUN Creatinine GFR Calculation BUN/Creatinine Ratio Glucose Calculated Osmolality Calcium Magnesium Total Bilirubin AST ALT Alkaline Phosphatase Troponin I < 0.015 < 0.015 B-Natriuretic Peptide Total Protein Albumin Globulin Albumin/Globulin Ratio Triglycerides 234 H Cholesterol 245 H LDL Cholesterol 153.0 VLDL Cholesterol 46.8 HDL Cholesterol 70 H Heart Disease Risk Ratio 3.50 Lipase Urine Color Urine Appearance Urine pH Ur Specific [place] Urine Protein Urine Glucose (UA) Urine Ketones Urine Blood Urine Nitrate Urine Bilirubin Urine Urobilinogen Urine Leukocytes Urine RBC Urine WBC Ur Squamous Epith Cells Ur Culture Indicated? Urine Opiates Screen Ur Barbiturates Screen Ur Phencyclidine Scrn U Amphetamine/Methamph U Benzodiazepines Scrn U Cocaine Metab Screen U Cannabinoids Screen 11/17/16 11/17/16 11/17/16 21:07 21:07 21:07 WBC 6.4 RBC 4.15 Hgb 14.0 Hct 41.2 MCV 99.3 MCH 34 MCHC 34.0 RDW 12.2 Plt Count 205 MPV 11.8 Neut % (Auto) 54.5 Lymph % (Auto) 34.3 [place] % (Auto) 8.1 Eos % (Auto) 1.9 Baso % (Auto) 0.3 Neut # (Auto) 3.5 Lymph # (Auto) 2.2 [place] # (Auto) 0.5 Eos # (Auto) 0.1 Baso # (Auto) 0.0 Immature Gran % 0.9 Nucleated RBC % 0.0 Immature Gran # 0.06 Nucleated RBCs # 0.00 INR PT Patient/Control Mix D-Dimer, Quantitative Sodium Potassium Chloride Carbon Dioxide Anion Gap BUN Creatinine GFR Calculation BUN/Creatinine Ratio Glucose Calculated Osmolality Calcium Magnesium Total Bilirubin AST ALT Alkaline Phosphatase Troponin I B-Natriuretic Peptide < 2 L Total Protein Albumin Globulin Albumin/Globulin Ratio Triglycerides Cholesterol LDL Cholesterol VLDL Cholesterol HDL Cholesterol Heart Disease Risk Ratio Lipase Urine Color Urine Appearance Urine pH Ur Specific [place] Urine Protein Urine Glucose (UA) Urine Ketones Urine Blood Urine Nitrate Urine Bilirubin Urine Urobilinogen Urine Leukocytes Urine RBC Urine WBC Ur Squamous Epith Cells Ur Culture Indicated? Urine Opiates Screen Negative Ur Barbiturates Screen Negative Ur Phencyclidine Scrn Negative U Amphetamine/Methamph Negative U Benzodiazepines Scrn Positive H U Cocaine Metab Screen Negative U Cannabinoids Screen Negative 11/17/16 11/17/16 11/17/16 21:07 21:07 21:07 WBC RBC Hgb Hct MCV MCH MCHC RDW Plt Count MPV Neut % (Auto) Lymph % (Auto) [place] % (Auto) Eos % (Auto) Baso % (Auto) Neut # (Auto) Lymph # (Auto) [place] # (Auto) Eos # (Auto) Baso # (Auto) Immature Gran % Nucleated RBC % Immature Gran # Nucleated RBCs # INR 0.9 PT Patient/Control Mix 9.6 D-Dimer, Quantitative <= 0.5 Sodium 139 Potassium 3.8 Chloride 104 Carbon Dioxide 26 Anion Gap 12.8 BUN 15 Creatinine 0.80 GFR Calculation 98 BUN/Creatinine Ratio 18.00 Glucose 102 Calculated Osmolality 277.5 Calcium 9.2 Magnesium 2.0 Total Bilirubin < 0.39 AST 24 ALT 26 Alkaline Phosphatase 64 Troponin I B-Natriuretic Peptide Total Protein 7.0 Albumin 3.9 Globulin 3.1 Albumin/Globulin Ratio 1.2 Triglycerides Cholesterol LDL Cholesterol VLDL Cholesterol HDL Cholesterol Heart Disease Risk Ratio Lipase 218.0 Urine Color Yellow Urine Appearance Clear Urine pH 7.0 Ur Specific [place] 1.009 Urine Protein Negative Urine Glucose (UA) Negative Urine Ketones Negative Urine Blood Negative Urine Nitrate Negative Urine Bilirubin Negative Urine Urobilinogen < 2.0 H Urine Leukocytes Negative Urine RBC <1 Urine WBC 1 Ur Squamous Epith Cells Occasional Ur Culture Indicated? Not indicated Urine Opiates Screen Ur Barbiturates Screen Ur Phencyclidine Scrn U Amphetamine/Methamph U Benzodiazepines Scrn U Cocaine Metab Screen U Cannabinoids Screen DS: Provider Date of admission: 11/18/16 02:11 Primary care physician: Cedric Kaur, Attending physician on admission: George Lala MD Consults: 11/18/16 02:15 Consult to Physician [CONS] Routine Comment: Consulting Provider: Cardiology - [facility] Consult to Specialist Group: Cardiology Person Notified: ny Date Notified: 11/18/16 Time Notified: 07:55 Discharging clinician: Carly Figueroa MD
[2016-11-18 16:14] VITALS: BP 105/65
--- NOTE | 2016-11-18 17:24 | Nuclear Medicine Report ---
STRESS MYOCARDIAL PERFUSION STUDY The patient is a 40-year-old female, who came in having chest pain symptoms and a mildly abnormal EKG . We attempted to do a normal stress test on the patient, but she could not exercise adequately to r each her target heart rate, so the test was converted to a Lexiscan protocol test. She underwent a r est myocardial perfusion study after a 10 mCi dose of Technetium-99m Sestamibi. She did underwent a Lexiscan protocol infusion and during this portion of the study she received a 30 mCi of Technetium-9 9m Sestamibi. Repeat myocardial perfusion was performed. Comparison of the stress and rest myocardi al perfusion images reveals no evidence of cardiac ischemia. There was some minimal breast attenuati on artifact. Quantitative perfusion analysis calculated a summed stress score of 0, which is consist ent with no significant ischemia. Quantitative gated images calculated a left ventricular ejection f raction of 69% with normal regional wall motion. IMPRESSION: 1. CLINICALLY AND ELECTRICALLY NEGATIVE LEXISCAN PROTOCOL STRESS TEST. 2. I SEE NO EVIDENCE OF CARDIAC ISCHEMIA ON PERFUSION IMAGING. 3. THERE IS NORMAL LEFT VENTRICULAR FUNCTION OF THIS STUDY. CONCLUSION: These results are most consistent with a low-risk test. Procedure performed and interpreted at [facility]) Department of Radiology.
== END 2016-11-18 16:17 | disposition home or self-care (01) ==
LOC: N.ED 20:35 → N.EDINP 20:35 → SUATTDRO 11-18 02:11 → N.EDINP 11-18 02:56 → N.TELES 11-18 03:06
PROVIDERS: ADMIT Internal Medicine; ATTEND Internal Medicine